=== PATIENT | male | born 1955 | race Caucasian/White ===

== ENCOUNTER → 2016-11-04 | Outpatient (CLI) | payer OTHER | END | disposition home or self-care (01) | LOC: CARD 10:47 | DX: I10 Essential (primary) hypertension (principal); E11.9 Type 2 diabetes mellitus without complications ==

== ENCOUNTER → 2016-11-06 | Outpatient (CLI) | payer OTHER | END | disposition home or self-care (01) | LOC: US 11-04 10:45 | DX: E80.6 Other disorders of bilirubin metabolism (principal); E11.9 Type 2 diabetes mellitus without complications ==

== ENCOUNTER → 2017-08-27 | Outpatient (CLI) | payer OTHER ==
[2017-08-27 09:07] LABS: BILIRUBIN NEGATIVE (NEGATIVE); BLOOD NEGATIVE (NEGATIVE); CLARITY CLEAR (CLEAR); COLOR YELLOW (YELLOW); GLUCOSE NEGATIVE (NEGATIVE); KETONE NEGATIVE (NEGATIVE); LEUKO ESTERASE NEGATIVE (NEGATIVE); NITRITE NEGATIVE (NEGATIVE); PH 6.5 (5.0-9.0); SPECIFIC GRAVITY <= 1.005 (1.005-1.030); UROBILINOGEN 0.2 E.U./dl (0.2-1.0)
[2017-08-27 09:09] LABS: BASO % 1.3 % (0.0-1.0); EOS % 0.6 % (1.0-4.0); HEMATOCRIT 41.4 % (42.0-52.0); HEMOGLOBIN 13.9 g/dl (14.0-18.0); LYMPH % 32.6 % (27.0-41.0); MEAN CELL VOLUME 87.5 fl (80.0-94.0); MEAN CORPUSCULAR HGB 29.4 pg (27.0-31.0); MEAN CORPUSCULAR HGB CONC 33.6 g/dl (33.0-37.0); MEAN PLATELET VOLUME 9.9 fl (9.6-12.3); MONO # 0.5 10*3/uL (0.1-1.0); MONO % 14.6 % (3.0-9.0); NEUT # 1.6 10*3/uL (2.3-7.9); NEUT % 50.9 % (47.0-73.0); PLATELET COUNT AUTOMATED 94 10*3/uL (130-400); RED BLOOD COUNT 4.73 10*6/uL (4.50-5.90); RED CELL DISTRI WIDTH 14.4 % (0-14.5); WHITE BLOOD COUNT 3.2 10*3/uL (4.8-10.8)
[2017-08-27 09:33] LABS: ALBUMIN 3.6 gm/dl (3.1-4.5); ALKALINE PHOSPHATASE 119 U/L (45-117); BUN 3 mg/dl (7-24); CHLORIDE 95 mmol/L (98-107); CHOLESTEROL 132 mg/dL (<200); CREATININE 1.12 mg/dL (0.70-1.30); HDL CHOLESTEROL 74 mg/dl (40-60); LDL CHOLESTEROL 45 mg/dL (9-159); POTASSIUM 4.1 mmol/L (3.5-5.1); SGOT/AST 25 IU/L (3-35); SGPT/ALT 27 U/L (12-78); SODIUM 131 mmol/L (136-145); TOTAL PROTEIN 8.1 gm/dL (6.4-8.2); TRIGLYCERIDES 66 mg/dl (<150); VLDL CHOLESTEROL 13 mg/dL (6-40)
== END | disposition home or self-care (01) ==
LOC: LAB 08:38
PROVIDERS: Nurse Practitioner Family
DX: E80.6 Other disorders of bilirubin metabolism (principal); E11.9 Type 2 diabetes mellitus without complications; I10 Essential (primary) hypertension

== ENCOUNTER → 2018-02-06 | Outpatient (CLI) | payer OTHER ==
--- NOTE | ~2018-02-06 | EKG ---
[place], [place] ELECTROCARDIOGRAM REPORT NAME: JOSEPH MAYA UNIT #: [id number] ROOM: DOCTOR: EPIPHANY DRAFT REPORT BIRTHDATE: [birth year] [facility] Test Date: 2018-02-06 Test Time: 10:36:20 Pat Name: JOSEPH MAYA Department: Room: Gender: M [place] Facilitator: Akiko Knox : 1955 Requested By: GIUSEPPE SANCHEZ Order Number: [id number] Reading MD: Calderon Ordoñez MD Measurements Intervals [place] Rate: 94 P: 12 DC: 160 QRS: -7 QRSD: 90 T: 34 QT: 399 QTc: 500 Interpretive Statements Sinus rhythm Abnormal R-wave progression, early transition Borderline prolonged QT interval No previous ECG available for comparison Electronically Signed On 02-09-2018 8:30:53 PST by Calderon Ordoñez MD CM:EKGRPT:ELECTROCARDIOGRAM REPORT [id number] GIUSEPPE SANCHEZ EPIPHANY DRAFT REPORT GIUSEPPE SANCHEZ
== END | disposition home or self-care (01) ==
LOC: RAD 10:12
DX: E11.69 Type 2 diabetes mellitus with other specified complication (principal); I10 Essential (primary) hypertension; R60.9 Edema, unspecified; M25.474 Effusion, right foot; M25.475 Effusion, left foot; J43.9 Emphysema, unspecified

== ENCOUNTER → 2018-02-25 | Outpatient (CLI) | payer OTHER | END | disposition home or self-care (01) | LOC: US 02-20 10:00 | DX: K80.20 Calculus of gallbladder without cholecystitis without obstruction (principal); K76.89 Other specified diseases of liver; R14.0 Abdominal distension (gaseous); F10.10 Alcohol abuse, uncomplicated; R60.9 Edema, unspecified ==

== ENCOUNTER → 2018-04-23 | Outpatient (CLI) | payer MEDICARE, MEDICAID | END | disposition home or self-care (01) | LOC: CARD 11:47 | DX: I35.8 Other nonrheumatic aortic valve disorders (principal); I10 Essential (primary) hypertension; R60.9 Edema, unspecified ==

== ENCOUNTER 2020-12-04 16:40 | Emergency (ER) | payer OTHER, MEDICAID ==
[~2020-12-04] VITALS: Ht 180.3 cm; Wt 72.6 kg
[2020-12-04] MEDS ORDERED: PRINIVIL20 M1 PO (16:56)
[2020-12-04] MEDS ORDERED: LASIX20 MG PO (16:56)
[2020-12-04] MEDS ORDERED: SUNMARK OMEPRAZ20 M1 PO (16:58)
[2020-12-04] MEDS ORDERED: K-TAB10 MEQ PO (16:58)
[2020-12-04] MEDS ORDERED: FERREX 150150 MG PO (16:59)
[2020-12-04] MEDS ORDERED: DULCOLAX STOOL100 M1 PO (17:01)
[2020-12-04] MEDS ORDERED: METFORMIN HYD1000 MG PO (17:01)
== END 2020-12-04 18:05 | disposition home or self-care (01) ==
LOC: ED 16:40
DX: U07.1 COVID-19 (principal); E11.9 Type 2 diabetes mellitus without complications; F17.200 Nicotine dependence, unspecified, uncomplicated; Z79.899 Other long term (current) drug therapy

== ENCOUNTER 2022-05-11 13:56 | Emergency (ER) | payer MEDICARE, OTHER ==
[~2022-05-11] VITALS: Wt 90.7 kg
[~2022-05-11 13:56] MED LIST: DULCOLAX STOOL100 M1 PO; FERREX 150150 MG PO; K-TAB10 MEQ PO; LASIX20 MG PO; METFORMIN HYD1000 MG PO; PRINIVIL20 M1 PO; SUNMARK OMEPRAZ20 M1 PO
[2022-05-11 14:55] LABS: HEMATOCRIT 22.2 % (42.0-52.0); MEAN CELL VOLUME 77.9 fl (80.0-94.0); MEAN CORPUSCULAR HGB 22.1 pg (27.0-31.0); MEAN CORPUSCULAR HGB CONC 28.4 g/dl (33.0-37.0); MEAN PLATELET VOLUME 10.9 fl (9.6-12.3); PLATELET COUNT AUTOMATED 96 10*3/uL (130-400); RED BLOOD COUNT 2.85 10*6/uL (4.50-5.90); RED CELL DISTRI WIDTH 16.4 % (0-14.5); WHITE BLOOD COUNT 3.3 10*3/uL (4.8-10.8)
[2022-05-11 15:24] LABS: ALKALINE PHOSPHATASE 101 U/L (46-116); BASOPHILS 2 % (0-1); BUN 6 mg/dl (9-23); CHLORIDE 99 mmol/L (98-107); PLATELET SUFFICIENCY LOW (NORMAL); POTASSIUM 4.4 mmol/L (3.4-5.1); SGPT/ALT 15 U/L (10-49); TOTAL CELLS COUNTED 100 #CELLS
[2022-05-11 15:25] LABS: BURR CELLS FEW; POLYCHROMASIA SLIGHT
== END 2022-05-11 20:10 | disposition short-term general hospital (02) ==
LOC: ED 13:56
PROVIDERS: Internal Medicine
DX: I47.29 Other ventricular tachycardia (principal); D61.818 Other pancytopenia; K21.9 Gastro-esophageal reflux disease without esophagitis; F17.200 Nicotine dependence, unspecified, uncomplicated

== ENCOUNTER 2022-06-11 20:59 | Inpatient (IN) | payer OTHER, MEDICARE ==
[~2022-06-11] VITALS: Ht 180.3 cm; Wt 93.0 kg
[~2022-06-11 20:59] MED LIST changes: +CEPHALEXIN500 M1 PO; +ELIQUIS5 M1 PO; +FEROSUL325 MG PO; +FLECAINIDE ACE100 M1 PO
[2022-06-11 21:00] VITALS: BP 95/34
== END 2022-06-12 04:12 | DRG 194 ==
LOC: ICCU 20:59
PROVIDERS: ADMIT Internal Medicine; ATTEND Internal Medicine
DX: J18.9 Pneumonia, unspecified organism (principal); J90 Pleural effusion, not elsewhere classified; Z66 Do not resuscitate; Z86.79 Personal history of other diseases of the circulatory system; I50.9 Heart failure, unspecified; E11.9 Type 2 diabetes mellitus without complications; I45.6 Pre-excitation syndrome; I48.0 Paroxysmal atrial fibrillation; I45.81 Long QT syndrome; Z51.5 Encounter for palliative care